=== PATIENT | female | born 1940 | race Caucasian/White ===

== ENCOUNTER → 2021-03-10 13:01 | Outpatient (CLI) | payer MEDICARE, SELFPAY ==
--- NOTE | 2021-03-10 13:07 | DI.MRI.S_ITS ---
PROCEDURE: MR ANKLE LT WO CON INDICATIONS: Other specified disorders of synovium and tendon, TECHNIQUE: Noncontrast sagittal T1 spin echo and T2 fast spin echo with fat saturation, axial proton density fast spin echo and T2 fast spin echo with fat saturation, coronal T1 spin echo and T2 fast spin echo with fat saturation through the ankle/hindfoot. COMPARISON: [facility] [place], CR, XR ANKLE 3 VIEWS WEIGHT BEARING LEFT, 03/07/2021, 11:23. FINDINGS: Image quality: Excellent. Bones and joints: No bone marrow contusions or fractures. 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 No hindfoot coalitions. No osteochondral injuries of the talar dome. No pathologic joint effusions. There is periarticular subcutaneous edema around the ankle. Medial structures: The posterior tibialis, flexor digitorum longus, and flexor hallucis longus tendons are intact. The posterior tibial neurovascular bundle appears normal within the tarsal tunnel, without extrinsic mass effect. The deltoid and spring ligament components appear intact. Lateral structures: The anterior talofibular, calcaneofibular, and posterior talofibular ligaments appear intact. More superiorly, the anterior and posterior tibiofibular ligaments also appear intact, as is the intermalleolar ligament. The tibiofibular syndesmosis is normal in width at 2 mm or less. The peroneus longus and brevis tendons demonstrate normal location and morphology. Adjacent bony peroneal tubercle and retrotrochlear prominence are normal in size. The sinus tarsi demonstrates preserved fatty signal, without edema, fibrosis, or cyst formation. The calcaneonavicular and calcaneocuboid components of the bifurcate ligament appear intact. The dorsal calcaneocuboid ligament appears intact. Anterior structures: The tibialis anterior, extensor hallucis longus, and extensor digitorum longus tendons appear intact. The dorsal talonavicular ligament appears intact. Posterior and plantar structures: Achilles tendon demonstrates severe tendinosis with moderate partial tearing centered approximately 5 cm from its insertion. There is no complete rupture, but there is mild distraction of the torn fibers with a gap of approximately 0.6 cm medially in the tendon. There is thickening of the central cord of the plantar fascia without associated edema. No abductor digiti quinti muscle atrophy to suggest Maier neuropathy. IMPRESSION: 1. Severe tendinosis of the Achilles tendon with moderate partial tearing including full-thickness tearing medially with associated mild distraction of torn fibers but no complete rupture. Dictated by: Wilmer Dorsey M.D. on 03/12/2021 at 8:06 Approved by: Wilmer Dorsey M.D. on 03/12/2021 at 8:15
== END ==
PROVIDERS: PCP Family Medicine; Referring Provider Orthopaedic Surgery Foot and Ankle Surgery; Visit Provider Orthopaedic Surgery Foot and Ankle Surgery
DX: S86.012A Strain of left Achilles tendon, initial encounter (principal); X58.XXXA Exposure to other specified factors, initial encounter
CPT/HCPCS: 73721

== ENCOUNTER → 2021-12-04 07:03 | Outpatient (CLI) | payer MEDICARE, SELFPAY ==
[2021-12-04 21:14] LABS: COVID19 - ORCAS (NP or Nasal) Negative (Negative)
== END ==
PROVIDERS: PCP Family Medicine; Visit Provider Physician Assistant
DX: Z01.812 Encounter for preprocedural laboratory examination (principal); Z20.822 Contact with and (suspected) exposure to COVID-19
CPT/HCPCS: C9803; U0003